=== PATIENT | male | born 1995 | race African-American/Black ===

== ENCOUNTER 2017-10-21 02:28 | Emergency (ER) | payer OTHER ==
--- NOTE | 2017-10-21 03:08 | ER Document Report ---
ED General - General Chief Complaint: Overdose Stated Complaint: PSYCH Time Seen by Provider: 10/21/17 02:59 Notes: Patient is a 22-year-old male who presents with complaints suicidal thoughts. He has history of bipolar disorder. He says that there is no inciting events. He said he just became much more depressed. He said he took approximately twenty five to thirty 200 mg Tylenol tablets. He immediately vomited afterwards. He says his friends talked him into vomiting. He denies any fevers. No pain. He is on some medication for bipolar disorder. There is no other complaints at this time. He does request that he does not consent to [facility] because he works there. Patient says he took the Tylenol approximately 3 hours prior to arrival to ED. TRAVEL OUTSIDE OF THE [place] IN LAST 30 DAYS: No - Related Data Allergies/Adverse Reactions: No Known Allergies Allergy (Unverified 10/21/17 02:43) Past Medical History - Social History Smoking Status: Never Smoker Frequency of alcohol use: Occasional Drug Abuse: Marijuana Family History: Reviewed & Not Pertinent Patient has suicidal ideation: Yes Patient has homicidal ideation: No Renal/ Medical History: Denies: Hx Peritoneal Dialysis Review of Systems - Review of Systems Notes: My Normal Review Basic REVIEW OF SYSTEMS: CONSTITUTIONAL : Denies fever, chills, or sweats. Denies recent illness. EENT: Denies eye, ear, throat, or mouth pain or symptoms. Denies nasal or sinus congestion. CARDIOVASCULAR: Denies chest pain. RESPIRATORY: Denies cough, cold, or chest congestion. Denies shortness of breath, difficulty breathing, or wheezing. GASTROINTESTINAL: Denies abdominal pain. Denies nausea, vomiting, or diarrhea. Denies constipation. Last BM: MUSCULOSKELETAL: Denies neck or back pain or joint pain or swelling. SKIN: Denies rash or skin lesions. NEUROLOGICAL: Denies altered mental status or loss of consciousness. Denies headache. Denies weakness or paralysis or loss of use of either side. Denies problems with gait or speech. Denies sensory or motor loss. Psychiatric: Depression, bipolar, and suicidal thoughts. ALL OTHER SYSTEMS REVIEWED AND NEGATIVE. Physical Exam - Vital signs Vitals: Temp Pulse Resp BP Pulse Ox 98.4 F 72 20 131/71 H 100 10/21/17 02:34 10/21/17 02:34 10/21/17 02:34 10/21/17 02:34 10/21/17 02:34 - Notes Notes: General Appearance: Well nourished, alert, cooperative, no acute distress, no obvious discomfort. Vitals: reviewed, See vital signs table. Eyes: PERRL, EOMI, Conjuctiva clear Mouth: No decreasd moisture Lungs: No wheezing, No rales, No rhonci, No accessory muscle use, good air exchange bilaterally. Heart: Normal rate, Regular rythm, No murmur, no rub Abdomen: Normal BS, soft, No rigidity, No abdominal tenderness, No guarding, no rebound, no abdominal masses, no organomegaly Extremities: strength 5/5 in all extremities, good pulses in all extremities, no swelling or tenderness in the extremities, no edema. Skin: warm, dry, appropriate color, no rash Neuro: speech clear, oriented x 3, normal affect, responds appropriately to questions. Course - Re-evaluation Re-evalutation: 10/21/17 05:44 Patient's initial Tylenol level and repeat Tylenol level are less than 10. He does not need N-acetylcysteine treatment. Patient has been placed on IVC paperwork due to attempts to run hurt himself. Patient does request not to go to [facility] as this would be a privacy issue for him being that he works there. This is understandable. Patient is medically stable for psychiatric evaluation. Dictation of this chart was performed using voice recognition software; therefore, there may be some unintended grammatical errors. - Vital Signs Vital signs: Temp Pulse Resp BP Pulse Ox 98.4 F 72 20 131/71 H 100 10/21/17 02:34 10/21/17 02:34 10/21/17 02:34 10/21/17 02:34 10/21/17 02:34 - Laboratory Result Diagrams: 10/21/17 03:10 10/21/17 03:10 Laboratory results interpreted by me: 10/21/17 10/21/17 10/21/17 03:10 03:10 05:05 RBC 5.63 H Sodium 149.1 H BUN 6 L Salicylates < 1.0 L Acetaminophen < 10 L < 10 L - EKG Interpretation by Me Additional EKG results interpreted by me: 10/21/17 03:21 EKG is reviewed and interpreted by me. EKG shows normal sinus rhythm with a rate of [address] segment elevation consistent with early repolarization abnormality. No reciprocal ST segment depressions. MN interval , QRS duration, QTc intervals are within normal range.
[2017-10-21 03:52] LABS: APPEARANCE,URINE CLEAR; BILIRUBIN,URINE NEGATIVE (NEGATIVE); GLUCOSE, URINE NEGATIVE (NEGATIVE); KETONES,URINE NEGATIVE (NEGATIVE); LEUKOCYTE ESTERASE,URINE NEGATIVE (NEGATIVE); NITRITE,URINE NEGATIVE (NEGATIVE); PROTEIN,URINE NEGATIVE (NEGATIVE); URINE SPECIFIC GRAVITY 1.005; UROBILINOGEN,URINE NEGATIVE mg/dL (<2.0)
[2017-10-21 03:55] LABS: ALANINE AMINOTRANSFERASE 32 U/L (21-72); ALCOHOL 195 mg/dL (NONE DETECTED); ALKALINE PHOSPHATASE 76 U/L (38-126); ANION GAP 15 (5-19); ASPARTATE AMINO TRANSFERASE 21 U/L (17-59); BILIRUBIN,DIRECT 0.2 mg/dL (0.0-0.4); BILIRUBIN,TOTAL 0.3 mg/dL (0.2-1.3); BLOOD UREA NITROGEN 6 mg/dL (7-20); CALCIUM 9.5 mg/dL (8.4-10.2); CARBON DIOXIDE 30 mmol/L (22-30); CHLORIDE 104 mmol/L (98-107); CREATININE RESULT 0.83 mg/dL (0.52-1.25); GLUCOSE 98 mg/dL (75-110); POTASSIUM 4.6 mmol/L (3.6-5.0); SODIUM 149.1 mmol/L (137-145); TOTAL PROTEIN 7.8 g/dL (6.3-8.2)
[2017-10-21 03:56] LABS: ABSOLUTE EOSINOPHILS # (AUTO) 0.3 10^3/uL (0.0-0.6); ABSOLUTE LYMPHOCYTES (AUTO) 1.8 10^3/uL (0.5-4.7); ABSOLUTE MONOCYTES (AUTO) 0.5 10^3/uL (0.1-1.4); ABSOLUTE NEUT (AUTO) 3.6 10^3/uL (1.7-8.2); BASOPHILS % (AUTO) 0.4 % (0-2); EOSINOPHILS % (AUTO) 4.6 % (0-6); HEMOGLOBIN 15.9 g/dL (13.5-17.0); HGB HCT DIFFERENCE 0.7; MEAN CORPUSCULAR HEMOGLOBIN 28.2 pg (27.0-33.4); MEAN CORPUSCULAR HGB CONC 33.8 g/dL (32.0-36.0); MEAN CORPUSCULAR VOLUME 84 fl (80-97); MONOCYTES % (AUTO) 8.1 % (3-13); RED BLOOD COUNT 5.63 10^6/uL (4.35-5.55); RED CELL DISTRIBUTION WIDTH 13.2 % (11.5-14.0); SEGMENTED NEUTROPHILS % (AUTO) 57.9 % (42-78); WHITE BLOOD COUNT 6.2 10^3/uL (4.0-10.5)
[2017-10-21 04:18] LABS: URINE BARBITURATES SCREEN NEGATIVE; URINE METHADONE SCREEN NEGATIVE; URINE OPIATES LOW NEGATIVE; URINE PHENCYCLIDINE SCREEN NEGATIVE
--- NOTE | 2017-10-21 07:51 | EKG REPORT ---
SEVERITY:- NORMAL ECG - SINUS RHYTHM ST ELEV, PROBABLE NORMAL EARLY REPOL PATTERN : Confirmed by: Dimitri Matias MD 21-Oct-2017 07:50:30
--- NOTE | 2017-10-21 10:07 | ER Document Report ---
Doctor's Note Notes: 10/21/17 10:06 Rounds: Chart reviewed and patient interviewed. Patient is being evaluated for a Tylenol overdose, but his Tylenol level was 0. Patient says he has a history of bipolar disorder and suicidal thoughts. He was found to have a blood alcohol of 195 when he came in. Vital signs have been normal except for a blood pressure of 94/47 this morning. I am having this repeated. Patient says he feels dehydrated and is drinking water and keeping it down with no problems. Does not wish to have anything else to drink. Patient appears to be medically stable for transfer or discharge. Keshia Herring MD
[2017-10-21] MEDS ORDERED: ONDANSETRON 4 MG TAB.RAPDIS PO ONE (11:51)
[2017-10-21] MEDS ORDERED: ACETAMINOPHEN 325 MG TABLET PO ONE (11:52)
[2017-10-21] MEDS ORDERED: FLUOXETINE HCL 20 MG CAPSULE PO SCH (12:15)
[2017-10-21] MEDS ORDERED: OXCARBAZEPINE 150 MG TABLET PO SCH (12:15)
[2017-10-21] MEDS ORDERED: DIVALPROEX SODIUM 500 MG TAB.SR.24H PO SCH (13:00)
[2017-10-21 15:06] VITALS: BP 119/72
--- NOTE | 2017-10-23 19:00 | PSYCHOLOGICAL NOTE ---
Psych Note - Psych Note Psych Note: Patient is a 22 year old male who presented to the ED via friend specifications writer hours for increased depression, SI, and an OD of 25-30 Tylenol 200MG. He reported he had drank a lot, a bunch of beer, dont remember how much last night. He noted he had been in recovery for 2 months prior to last night. He admitted he had two relapses with alcohol which included last night. He acknowledged he took a bunch of pills because he didnt want to exist. He stated he was not glad he was still alive, that a friend had talked him into vomiting shortly after taking the pills, denied current SI, and stated I dont feel anything right now. He stated there was no trigger and commented that this is the first time he was content and ready to and that everything was finally going well in his life. 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 He identified he has been hospitalized ever year since 2011. He further stated his last hospitalization was December 2016 in [place]. He admitted to previous drug use of Cannabis, Cocaine and methamphetamines. He identified his outpatient provide is [facility] where he sees Dr. Small for medication management and just started therapy last week. He stated he was supposed to have an appointment last week but didnt have the copay so they would not see him. He stated he is prescribed Trileptal 300MG BID for mood stabilization and 1.5 months ago Zoloft 50MG QD was added to address depression. He stated he felt like the Zoloft made him manic which was better than being depressed. He reported he is diagnosed with Bipolar Disorder. 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 His primary job is at a local [employer] hospital and he requested if seeking placement that his referral not be sent there for that reason. He stated he has chose not to have contact with his immediate family since May and said they could not know information about him. Patient was alert and oriented to person, place, time and situation. Mood was depressed with flat affect. He denied current SI, admitted to drinking alcohol and taking pills last night, and stated he was not glad he was still alive. He did not appear to be responding to internal stimuli AEB fair eye contact, answering questions appropriately when addressed, staying on topic and carrying on dialogue conversation. Thought processes were linear. Conversational speech was monotone. Intellectual abilities are estimated to be average. Insight, judgment and impulse control are poor AEB acknowledging things going well in his life yet having increased depression with SI attempt last night. Patient gave verbal consent to obtain collateral and include friend, Roland Davis ([phone]), in plan of care. He identified he has known patient for 2 months but they have become good friends. He stated patient has a Bipolar diagnosis and he feels patient has been in a manic-depressive state. He described this state as patient feeling like nothing is good and being in a dark place. He stated patient is not happy with his living situation which is a stressor. Patient stayed at friends [place] Saturday night where he endorsed more darkness and hopelessness per friend. Friend stated patient slept most of Saturday but went back to his (patients) apartment later evening. Friend stated on Saturday at 2100 patient texted him saying nothing makes him happy, he was sad, there was no light in the work he does, feels insufficient or not good enough, doesnt want to be in this existence, and doesnt want to be in this situation. Patient had told friend he was not planning to hurt self. Then at 2300 friend got a text from patient saying thanks for being there for me and being kind. Then at 0200 another friend of patient called this friend to say patient had taken pills. Friend identified patient had made comments about not wanting to be in this existence before but not lumped with all the others thoughts/feelings and not appearing to be in such a dark space. Patients father, Mr. Villela ([phone]) called in to the nurses station to check on patient. Patient said father and family could not be kept informed of what was going on and plan of care. Did obtain collateral. He stated patients current state (had gotten from someone else as the information he relayed was accurate but not provided by [facility] staff) was routine. He stated the Holidays must bring patient down because the past two Thanksgivings (2015, 2014) he had been sent to rehabilitation where he ad overdosed on pills both times. He confirmed patient cut family out since May 2017. He stated patient needs help but refuses time and time again. He identified he and other family have reached out and there is a nursing home rehabilitation program in [place] patient can go to but has refused. He asked to remind patient of this which this clinician did and patient responded I do not need recovery I have only relapsed. That statement shows poor insight and judgment. Diagnosis: 296.80 (F31.9) Unspecified Bipolar and Related Disorder by History Polysubstance Abuse History 291.9 (F10.99) Unspecified Alcohol Related Disorder (current relapse, recovery x 2 months) 292.9 (12.99) Unspecified Cannabis Related Disorder by History per patient 292.9 (F14.99) Unspecified Cocaine Related Disorder by History per patient 292.9 (F15.99) Unspecified Methamphetamine Related Disorder by history per patient Impression/Plan: Recommendation to maintain IVC given patient admitted to history of Bipolar Disorder, recent addition of Zoloft to address depression, current depressive state with flat affect, admittance of OD attempt and not glad to still be alive, and family report of previous OD attempts at same time of year (patient also noted a hospitalization every year since 2011). Consulted with Dr. Aparicio regarding the management and care of patient. ED Physician in agreement with recommendation.
== END 2017-10-21 15:20 | disposition other institution (70) ==
LOC: ER 02:28
DX: T39.1X2A Poisoning by 4-Aminophenol derivatives, intentional self-harm, initial encounter (principal); F31.9 Bipolar disorder, unspecified; R11.10 Vomiting, unspecified; Z79.899 Other long term (current) drug therapy
CPT/HCPCS: 93005; 99285; 36415; 80307 ×4; 85025; 80053; 81001; 93010; S0119